=== PATIENT | male | born 1985 | race Caucasian/White ===

== ENCOUNTER 2019-12-10 11:32 | Emergency (ER) | payer BC, SELFPAY ==
[~2019-12-10] VITALS: Ht 165.1 cm; Wt 65.8 kg
[2019-12-10 11:43] VITALS: Ht 165.1 cm; Wt 65.8 kg
[2019-12-10 13:08] VITALS: BP 114/69
== END 2019-12-10 13:08 | disposition home or self-care (01) ==
LOC: ED 11:32
DX: J18.9 Pneumonia, unspecified organism (principal); Z20.828 Contact with and (suspected) exposure to other viral communicable diseases
CPT/HCPCS: Q0092